=== PATIENT | female | born 1960 | race Caucasian/White ===

== ENCOUNTER 2016-12-03 14:44 | Emergency (ER) | payer MEDICAID ==
[~2016-12-03 14:44] MED LIST: BECL8.7A5 INH; HYDR25TA6 PO; LEVO125T5 PO; LORA1TAB PO; SERT50TA5 PO; TRAZ100T15 PO
== END 2016-12-03 16:13 ==
LOC: ED 14:44
DX: S83.411A Sprain of medial collateral ligament of right knee, initial encounter (principal); I10 Essential (primary) hypertension; Z85.3 Personal history of malignant neoplasm of breast; X58.XXXA Exposure to other specified factors, initial encounter; Y93.89 Activity, other specified; Y99.8 Other external cause status; Y92.89 Other specified places as the place of occurrence of the external cause
CPT/HCPCS: 29505; 99283

== ENCOUNTER 2017-01-08 12:59 | Emergency (ER) | payer MEDICAID ==
[~2017-01-08] VITALS: Ht 170.2 cm; Wt 97.9 kg
[2017-01-08 13:15] VITALS: BP 144/88
== END 2017-01-08 16:07 | disposition home or self-care (01) ==
LOC: ED 14:40
DX: G89.29 Other chronic pain (principal); M25.561 Pain in right knee; M25.571 Pain in right ankle and joints of right foot; M17.31 Unilateral post-traumatic osteoarthritis, right knee; I10 Essential (primary) hypertension; E07.9 Disorder of thyroid, unspecified; Z85.3 Personal history of malignant neoplasm of breast
CPT/HCPCS: 29505; 99284

== ENCOUNTER 2017-01-20 19:39 | Emergency (ER) | payer MEDICAID ==
[~2017-01-20] VITALS: Ht 170.2 cm; Wt 97.9 kg
[2017-01-20 19:41] VITALS: BP 121/82
== END 2017-01-20 21:02 | disposition home or self-care (01) ==
LOC: ED 20:46
DX: L20.84 Intrinsic (allergic) eczema (principal); E03.9 Hypothyroidism, unspecified; C50.919 Malignant neoplasm of unspecified site of unspecified female breast; I10 Essential (primary) hypertension; M19.90 Unspecified osteoarthritis, unspecified site; Z87.891 Personal history of nicotine dependence
CPT/HCPCS: 99283

== ENCOUNTER 2017-03-16 10:51 | Emergency (ER) | payer MEDICAID ==
[~2017-03-16] VITALS: Ht 170.2 cm; Wt 100.0 kg
[~2017-03-16 10:51] MED LIST changes: -BECL8.7A5 INH; +BECL8.7A7 INH
[2017-03-16 10:58] VITALS: BP 139/77
[2017-03-16] MEDS ORDERED: CEFTRIAXONE 1,000 MG IM ONE (13:00)
[2017-03-16] MEDS ORDERED: CEFTRIAXONE 1,000 MG ONE (13:13)
== END 2017-03-16 13:43 | disposition home or self-care (01) ==
LOC: ED 12:43
DX: N30.91 Cystitis, unspecified with hematuria (principal); N39.0 Urinary tract infection, site not specified; M19.90 Unspecified osteoarthritis, unspecified site; I10 Essential (primary) hypertension; E11.9 Type 2 diabetes mellitus without complications; E03.9 Hypothyroidism, unspecified
CPT/HCPCS: 81001; 96372; 99283; J0696

== ENCOUNTER 2017-05-24 11:10 | Emergency (ER) | payer MEDICAID ==
[~2017-05-24] VITALS: Ht 170.2 cm; Wt 102.2 kg
[2017-05-24 11:11] VITALS: BP 129/83
== END 2017-05-24 12:23 | disposition home or self-care (01) ==
LOC: ED 12:00
DX: N30.00 Acute cystitis without hematuria (principal); J45.909 Unspecified asthma, uncomplicated; E11.9 Type 2 diabetes mellitus without complications; E03.9 Hypothyroidism, unspecified; I10 Essential (primary) hypertension; M19.90 Unspecified osteoarthritis, unspecified site; Z88.0 Allergy status to penicillin
CPT/HCPCS: 81001; 87086; 99284